=== PATIENT | male | born 1960 | race Caucasian/White ===

== ENCOUNTER 2025-02-11 06:33 | Day surgery (SDC) | payer OTHER ==
[2025-02-06 13:43] VITALS: BMI 25.4
[2025-02-11] MEDS ORDERED: TETRACAINE 0.5% OPHTH SOLN 2 ML BOTTLE ONE (07:14)
[2025-02-11] MEDS ORDERED: ERYTHROMYCIN 0.5% OPHTHALMIC OINTMENT 3.5 GM TUBE ONE (07:14)
[2025-02-11] MEDS ORDERED: ceFAZolin SODIUM 1 GM VIAL ONE (07:14)
[2025-02-11] MEDS ORDERED: POVIDONE-IODINE 5% OPHTHALMIC PREP 30 ML SOLUTION ONE ×2 (07:14→09:07)
[2025-02-11] MEDS ORDERED: LIDOCAINE 1%/EPI 1:100000 (20 ML MULTI DOSE VIAL) ONE (07:14)
[2025-02-11] MEDS ORDERED: BUPIVACAINE HCL/PF 0.5% (5MG/ML) 10 ML VIAL ONE (07:15)
[2025-02-11] MEDS ORDERED: DEXMEDETOMIDINE HCL 200 MCG/2 ML IVPB ONE (07:16)
[2025-02-11] MEDS ORDERED: PROPOFOL 20 ML ONE ×4 (07:33→08:44)
[2025-02-11] MEDS ORDERED: LACTATED RINGERS SOLUTION 1,000 ML IV SCH (11:15)
[2025-02-11 12:17] VITALS: RESP 16
[2025-02-11 13:17] VITALS: BP 129/69; PULSE 71; TEMP 96.9
== END 2025-02-11 13:50 | disposition home or self-care (01) ==
LOC: FASU 06:33
PROVIDERS: ATTEND Ophthalmology
PROC: 08SR0ZZ Reposition Left Lower Eyelid, Open Approach (ICD-10-PCS; 2025-02-11)
PROC: 08SQ0ZZ Reposition Right Lower Eyelid, Open Approach (ICD-10-PCS; 2025-02-11)
PROC: 08SP0ZZ Reposition Left Upper Eyelid, Open Approach (ICD-10-PCS; principal; 2025-02-11 08:03)
PROC: 08SN0ZZ Reposition Right Upper Eyelid, Open Approach (ICD-10-PCS; 2025-02-11 08:03)
DX: H02.423 Myogenic ptosis of bilateral eyelids (principal); H02.89 Other specified disorders of eyelid
CPT/HCPCS: 94760